=== PATIENT | female | born 1940 | race Caucasian/White ===

== ENCOUNTER 2022-06-21 18:09 | Inpatient (IN) | payer MEDICARE, SELFPAY ==
--- NOTE | 2022-06-21 20:54 | DI.US.S_ITS ---
PROCEDURE: US ABDOMEN LIMITED INDICATIONS: Possible cholecystitis TECHNIQUE: Real-time scanning was performed of the abdominal and retroperitoneal organs, with image documentation. COMPARISON: Outside Facility, RG, CT ABDOMEN/PELVIS WITH CONTRAST, 06/21/2022, 15:48. FINDINGS: Liver: Visualized liver is is normal in size and homogeneous in echotexture. Gallbladder: There are gallstones. Nonmobile stones are noted in the gallbladder neck. Gallbladder wall appears mildly thickened measuring 3.7 mm. No pericholecystic fluid collection or sonographic Lopez sign. Biliary ducts: Intrahepatic bile ducts are mildly dilated. Extrahepatic bile duct caliber measures 8 mm. There stones in the common bile duct. Pancreas: There is a 1.0 x 0.7 x 0.5 cm cyst in pancreatic body and tail. In addition, there is a 1.0 x 1.8 x 1.7 cm complex mass inferior to the pancreatic body. Kidneys: There is a 0.7 x 6.8 x 4.7 cm cyst in the upper pole of the right kidney. Miscellaneous: No free abdominal fluid. IMPRESSION: 1. Cholelithiasis and choledocholithiasis. There is gallbladder wall thickening suspicious for acute cholecystitis. 2. Common bile duct is dilated. Suspect common bile duct obstruction. If clinically indicated, MRCP can be obtained. 3. There is a cyst in the pancreatic body and tail and a complex mass inferior to the pancreatic body. These can be further evaluated by pancreatic protocol CT or MRI. 4. There is a large cyst in the superior pole of the right kidney. Dictated by: Brittni Portillo M.D. on 06/22/2022 at 10:14 Approved by: Brittni Portillo M.D. on 06/22/2022 at 10:22
--- NOTE | 2022-06-21 20:59 | PM.HP.1 ---
History of Present Illness History of Present Illness Date Patient Seen: 06/21/22 Chief complaint: Direct admit Narrative: Marnie Trejo is an 81-year-old female with a history of dementia, hypothyroidism hypertension who presented to the ED department Sunday complaining of acute onset abdominal pain that started at breakfast this a.m., it is an achy pain, that radiates between right upper quadrant and right lower quadrant does not radiate, at the time of exam in Sunday pain was 8/10 no modifying factors, she had not eaten anything, never had this pain previously has no history of appendectomy or cholecystectomy, patient was mildly hypertensive with a blood pressure of 170/91 afebrile, physical exam demonstrated varying outcomes she was mildly tender in the right upper quadrant on 1 exam, then she had no tenderness on the 3rd exam she had right lower quadrant tenderness, patient was negative for guarding, rebound, masses, Cullens or Rosa- Alvarado sign, patient's vitals were BP 170/91, temp 98.6?, HR 72, R 18, O2 saturation 98% on room air. WBC 11.8, HGB 15.6, HCT 46.6, mild left shift neutrophils 9.6 no other laboratory findings are documented in chart note from Sunday ED. EKG demonstrates sinus rhythm with occasional PVC complexes, right BBB rate of 68. We have no record imaging or diagnostics for comparison. Patient was initially discharged home from the ED feeling that there was a low clinical suspicion for emergent SURGICAL OR MEDICAL CONDITIONS AT THAT TIME. It appears that the patient had a CT of the abdomen pelvis with contrast done in Sunday but results were reported after the patient had been discharged. CT of abdomen pelvis showed diffuse hyper attenuated surrounding the gallbladder, possible ronan cholecystic fluid with prominence of the extrahepatic bile duct this reflects possible acute cholecystitis, patient does have a large hiatal hernia containing almost the entire stomach as well as a loop of the transverse colon above the diaphragm but is absent for any findings of bowel obstruction or inflammation. It is reported that Dr. Kessler general surgeon was consulted regarding CT results-Dr. Levine requested that patient be a direct admit under the hospitalist service for possible cholecystitis. Patient will be coming by private vehicle via the [place] from Sunday. Patient direct admit to acute care for abdominal pain right quadrant upper and lower possible acute cholecystitis. Patient History Medical History Dementia Essential hypertension Hypothyroidism (acquired) Comment: No prior surgical procedures Family & Social History Family History (Updated 06/21/22 @ 21:11 by [facility] Mother Alcohol abuse Depression Father Drug abuse Safety & Behavioral: Patient lives with granddaughter, feels safe in her environment Tobacco & Substance use: Patient is a nonsmoker, does not drink alcohol, does not use drugs or recreational substances. Meds Home Medications and Allergies Home Medications Medication Instructions Recorded Confirmed Type amlodipine 10 mg tablet 10 mg PO DAILY 06/21/22 06/21/22 History cyclobenzaprine 5 mg tablet 5 mg PO BEDTIME 06/21/22 06/21/22 History donepezil 10 mg tablet 10 mg PO BEDTIME 06/21/22 06/21/22 History levothyroxine 50 mcg tablet 50 mcg PO DAILY 06/21/22 06/21/22 History valsartan 320 mg tablet 320 mg PO DAILY 06/21/22 06/21/22 History Allergies Allergy/AdvReac Type Severity Reaction Status Date / Time No Known Drug Allergies Allergy Verified 06/22/22 00:24 Review of Systems Review of Systems Narrative: All 12 point systems reviewed with the patient and are negative except otherwise documented. Exam Narrative Exam Narrative: General: Patient is a well-developed, well-nourished in no distress at this time. HEENT: Normocephalic, atraumatic, extraocular muscles intact, appears to have scleral icterus and generalized icterus of skin, oral pharynx is clear and mucous membranes are moist, noted mouth odor. Neck is supple and symmetric, trachea is midline, no adenopathy, no thyroid enlargement, nontender, no masses palpated. Negative for JVD Chest: Normal AP diameter and contour without kyphoscoliosis, no nasal flaring, retractions, or tachypneic labored Lungs: Auscultation of all lung rutledge are clear without adventitious sounds, wheezes, rhonchi, or rales. Cardio: regular rate and rhythm without murmur, rubs, or gallops, no carotid bruit, no cardiac pulsations present. Abdomen: negative for organomegaly, or masses. Bowel sounds are present in all 4 quadrants without guarding or rebound, no CVA tenderness no Arden's or Rosa-Alvarado sign. Musculoskeletal: Muscle strength and tone are equal within normal limits, no deformity, crepitus, effusions, cyanosis, clubbing or edema present. Full range of motion intact radial and pedal pulses are normal. Skin: Warm dry and intact without rashes, ulcerations or petechiae. Neuro: Alert and orientated x3, strength is +5/5 in all extremities, sensation to touch intact, no gross deficits noted of cranial nerves. Psych: Patient has a well-kept appearance, appropriate affect, mental status attitude thought context and judgment are appropriate for age. Objective Labs Result Diagrams: 06/22/22 04:18 06/22/22 04:18 Assessment & Plan Assessment & Plan narrative: Marnie Trejo is an 81-year-old female with a history of dementia, hypothyroidism hypertension presenting with acute abdominal pain, possible cholecystitis from [place] ED. Dr. Kessler to consult-patient is a direct admit to acute care. 1. Abdominal pain, acute, likely secondary to acute cholecystitis, present on admission -NPO -D5 half-normal saline at 40 cc/HR, q.6 blood sugar checks while NPO -manage pain and antiemetics -Dr. Kessler was consulted from [place], consult placed for [place] -abdominal ultrasound ordered -[place] 06/21/22:CT of abdomen pelvis showed diffuse hyper attenuated surrounding the gallbladder, possible ronan cholecystic fluid with prominence of the extrahepatic bile duct this reflects possible acute cholecystitis, patient does have a large hiatal hernia containing almost the entire stomach as well as a loop of the transverse colon above the diaphragm but is absent for any findings of bowel obstruction or inflammation. 2. Dementia, chronic, present on admission -continue Aricept 3. Essential hypertension, uncontrolled, acute on chronic, present on admission -continue amlodipine and valsartan 4. Hypothyroidism, acquired, chronic, present on admission -TSH ordered -continue levothyroxine Code status:DNR/DNI Surrogate decision maker: Kevin Trejo Grand daughter COVMARYANNE PCR: Negative DVT/VTE prophylaxis: Holding VTE due to possible surgical intervention, SCDs only Disposition: I have utilized all available immediate resources to obtain, update, or review the patient's current medications. Exception-the patient is not eligible for medication reconciliation; the patient is in an emergent medical situation were delaying treatment would jeopardize the patient's health. I confirmed that the patient's advanced care plan is present, Code status is documented and/or surrogate decision maker is listed in the patient's medical record. I have personally reviewed patient's chart notes from PCP, specialists, diagnostic imaging, and laboratory, Time Spent With Patient Critical Care time: I spent a total of [] minutes of critical care time on this patient's care today; this time is exclusive of procedural time.
[2022-06-21 21:30] VITALS: BP 196/85; PULSE 80; RESP 16; TEMP 36.8; O2SAT 96
[2022-06-21 21:57] VITALS: BMI 27.1
[2022-06-21 22:08] VITALS: BMI 27.1
[2022-06-21 23:35] VITALS: BP 188/96
[2022-06-22] MEDS: DONEPEZIL 5 MG TABLET 10 MG PO ×2 (01:00→21:05)
[2022-06-22] MEDS: DEXTROSE 5%-0.9% NS 1,000 ML 40 ML IV (01:16)
[2022-06-22 02:30] LABS: Appearance Urine UA CLEAR; Bilirubin Urine UA NEGATIVE (NEGATIVE); Color Urine UA YELLOW; Glucose Urine UA NEGATIVE (Negative); Ketones Urine UA 1+ (NEGATIVE); Leukocyte Esterase Urine UA NEGATIVE (NEGATIVE); Nitrite Urine UA NEGATIVE (Negative); Occult Blood Urine UA 1+ (Negative); Protein Urine UA TRACE (Negative); Urobilinogen Urine UA 0.2 E.U./dL (0.2)
[2022-06-22 02:45] LABS: Bacteria Urine None Seen; Culture Indicated Urine Cult Not Indicated; RBC Urine 1-5/HPF (0-5/HPF); WBC Urine 0-1/HPF (0-5/HPF)
[2022-06-22 04:29] LABS: Add Manual Diff / Slide Review NO; Basophils Absolute Auto 100 /uL (0-100); Basophils Percent Auto 0.5 % (0-2); Eosinophils Absolute Auto 0 /uL (0-450); Eosinophils Percent Auto 0.5 % (2-4); Hematocrit 44.2 % (36-46); Hemoglobin 15.3 g/dL (12.0-16.0); Lymphocytes Absolute Auto 900 /uL (1100-4500); Lymphocytes Percent Auto 8.5 % (25-40); Mean Corpuscular HGB Conc 34.7 % (30-36); Mean Corpuscular Hemoglobin 30.6 PG (26-34); Mean Corpuscular Volume 88.2 fL (80-100); Monocytes Absolute Auto 1000 /uL (0-900); Monocytes Percent Auto 9.3 % (3-14); Neutrophils Absolute Auto 8400 /uL (1500-7000); Neutrophils Percent Auto 81.2 % (50-75); Platelet Count 301 X10^3/uL (150-400); Red Blood Cell Count 5.01 X10^6/uL (4.0-5.2); Red Cell Distribution Width 14.2 % (11.6-14.8); White Blood Cell Count 10.4 X10^3/uL (4.5-11.0)
[2022-06-22 04:39] LABS: Prothrombin Time 11.4 SECONDS (10.1-12.7)
[2022-06-22 04:46] LABS: BUN Creatinine Ratio 14.9 (6-22); Blood Urea Nitrogen 10 mg/dL (7-17); Calcium 8.8 mg/dL (8.4-10.2); Carbon Dioxide 24 mmol/L (22-32); Chloride 96 mmol/L (98-107); Estimated Glomerular Filt Rate > 60 mL/min (>60); Glucose 124 mg/dL (80-110); HEMOLYSIS < 15 (0-50); Potassium 3.7 mmol/L (3.4-5.1); Sodium 127 mmol/L (137-145)
[2022-06-22 04:47] LABS: Lactate (Lactic Acid) 0.8 mmol/L (0.7-2.1)
[2022-06-22 05:03] LABS: Procalcitonin 0.06 ng/mL (<0.5)
[2022-06-22 06:00] VITALS: BP 167/78; PULSE 74; RESP 17; TEMP 36.1; O2SAT 94
[2022-06-22 07:19] LABS: Alanine Aminotransferase 13 IU/L (<35); Albumin 4.2 g/dL (3.5-5.0); Albumin Globulin Ratio 1.3 (1.0-2.8); Alkaline Phosphatase 95 U/L (38-126); Aspartate Aminotransferase 43 IU/L (14-36); Bilirubin Total 0.8 mg/dL (0.2-1.3); Bilirubin Unconjugated 0.7 mg/dL (0.0-1.1); Globulin 3.3 g/dL (1.7-4.1); HEMOLYSIS 35 (0-50); Total Protein 7.5 g/dL (6.3-8.2)
--- NOTE | 2022-06-22 08:00 | PM.PN.1 ---
Subjective Subjective Date Patient Seen: 06/22/22 Time Patient Seen: 13:50 Interval history: Patient feeling alot better today with less abd pain. Daughter in law at bedside. Exam Vital Signs (past 8 hours): - 06/22/22 06:00 Temperature 97 F L Pulse Rate 74 Respiratory Rate 17 Blood Pressure 167/78 H Pulse Oximetry 94 Oxygen Flow Rate 0 Oxygen Flow Rate 0 Narrative Exam Narrative: GEN: no acute distress, pleasantly demented HEENT: moist mucous membranes, PERRL NECK: trachea midline, no JVD CV: regular rate and rhythm, no murmurs PULM: clear bilaterally ABD: soft, mildlly tender in RUQ, nondistended, no organomegaly EXT: warm and well perfused with no edema NEURO: awake, alert, oriented, no focal deficits Objective Labs Result Diagrams: 06/22/22 04:18 06/22/22 04:18 Labs: Laboratory Results - last 24 hr 06/22/22 06/22/22 06/22/22 00:07 04:18 04:18 WBC 10.4 RBC 5.01 Hgb 15.3 Hct 44.2 MCV 88.2 MCH 30.6 MCHC 34.7 RDW 14.2 Plt Count 301 Neut % (Auto) 81.2 H Lymph % (Auto) 8.5 L Harper % (Auto) 9.3 Eos % (Auto) 0.5 L Baso % (Auto) 0.5 Neut # (Auto) 8400 H Lymph # (Auto) 900 L Harper # (Auto) 1000 H Eos # (Auto) 0 Baso # (Auto) 100 PT INR Sodium Potassium Chloride Carbon Dioxide BUN Creatinine Estimated GFR BUN/Creatinine Ratio Glucose Lactate 0.8 Calcium Magnesium Total Bilirubin Conjugated Bilirubin Unconjugated Bilirubin AST ALT Alkaline Phosphatase Total Protein Albumin Globulin Albumin/Globulin Ratio Procalcitonin Urine Color Yellow Urine Appearance Clear Urine pH 7.0 Ur Specific [place] 1.010 Urine Protein Trace H Urine Glucose (UA) Negative Urine Ketones 1+ H Urine Occult Blood 1+ H Urine Nitrate Negative Urine Bilirubin Negative Urine Urobilinogen 0.2 Ur Leukocyte Esterase Negative Urine RBC 1-5/hpf Urine WBC 0-1/hpf Urine Bacteria None seen Ur Culture Indicated? Cult not indicated 06/22/22 06/22/22 06/22/22 04:18 04:18 04:18 WBC RBC Hgb Hct MCV MCH MCHC RDW Plt Count Neut % (Auto) Lymph % (Auto) Harper % (Auto) Eos % (Auto) Baso % (Auto) Neut # (Auto) Lymph # (Auto) Harper # (Auto) Eos # (Auto) Baso # (Auto) PT 11.4 INR 1.0 Sodium 127 L Potassium 3.7 Chloride 96 L Carbon Dioxide 24 BUN 10 Creatinine 0.67 Estimated GFR > 60 BUN/Creatinine Ratio 14.9 Glucose 124 H Lactate Calcium 8.8 Magnesium 2.0 Total Bilirubin 0.8 Conjugated Bilirubin 0.0 Unconjugated Bilirubin 0.7 AST 43 H ALT 13 Alkaline Phosphatase 95 Total Protein 7.5 Albumin 4.2 Globulin 3.3 Albumin/Globulin Ratio 1.3 Procalcitonin 0.06 Urine Color Urine Appearance Urine pH Ur Specific [place] Urine Protein Urine Glucose (UA) Urine Ketones Urine Occult Blood Urine Nitrate Urine Bilirubin Urine Urobilinogen Ur Leukocyte Esterase Urine RBC Urine WBC Urine Bacteria Ur Culture Indicated? [facility] Medical History Dementia Essential hypertension Hypothyroidism (acquired) Family History Mother Alcohol abuse Depression Father Drug abuse Social History household members: other alcohol intake: never Assessment & Plan Assessment & Plan narrative: Marnie Trejo is an 81-year-old female with a history of dementia, hypothyroidism hypertension presenting with acute abdominal pain, possible cholecystitis from [place] ED. Dr. Kessler to consult-patient is a direct admit to acute care. 1. Abdominal pain, acute, secondary to acute cholecystitis and choledocholithiasis, present on admission -abdominal ultrasound 06/22 shows gallstones in gallbaldder and CBD with mildly thickened wall and CBD dilation, however no signs of pericholecystic fluid, leukocytosis or positive stapleton's -Dr. Kessler was consulted from [place], saw and offered surgery however patient declined and family preferred to wait and see if improvement possible without surgery. Would like to defer MRCP. -continue rocephin and flagyl -may advance diet -[place] 06/21/22:CT of abdomen pelvis showed diffuse hyper attenuated surrounding the gallbladder, possible ronan cholecystic fluid with prominence of the extrahepatic bile duct this reflects possible acute cholecystitis, patient does have a large hiatal hernia containing almost the entire stomach as well as a loop of the transverse colon above the diaphragm but is absent for any findings of bowel obstruction or inflammation. 2. Dementia, chronic, present on admission -continue Aricept 3. Essential hypertension, uncontrolled, acute on chronic, present on admission -continue amlodipine and valsartan 4. Hypothyroidism, acquired, chronic, present on admission -TSH normal -continue levothyroxine 5. Acute hyponatremia -sodium 127, likely due to D5W IV -stop D5W and start NS IV 6. Pancreatic mass? -Abd US with 1x1.7x1.5cm complex mass inferior to pancreatic body -per family can hold on MRCP at this time Code status:DNR/DNI Surrogate decision maker: Kevin Trejo Grand daughter COVMARYANNE PCR: Negative DVT/VTE prophylaxis: heparin SQ Dispo: Pending improvement in abd pain and monitoring to ensure surgery not required. Likely 1-2 days. Time Spent With Patient Critical Care time: I spent a total of [] minutes of critical care time on this patient's care today; this time is exclusive of procedural time. Quality VTE Deep Vein Thrombosis/Pulmonary Embolism Present on Admission: No
[2022-06-22] MEDS: AMLODIPINE 5 MG TABLET 10 MG PO (09:20)
[2022-06-22] MEDS: VALSARTAN 80 MG TABLET 320 MG PO (09:20)
[2022-06-22 12:00] VITALS: BP 147/52; PULSE 67; RESP 18; TEMP 36.5; O2SAT 95
--- NOTE | 2022-06-22 12:11 | CM.DANOTE ---
Addendum entered by ROLDAN Cevallos 06/22/22 14:22: ADD: Return call from [facility] RN ([phone]) requesting clinicals to review and states they have not started med management for pt yet but the plan is to initiate it when pt is discharged and returns and requests d/c summary, signed med list, and any scripts be faxed to [phone] at discharge and aware pt may be stable for d/c tomorrow if she continues to improve. No need for RN report to be called as long as d/c summary and meds faxed at discharge. SW faxed initial clinicals to [facility] to review today. BF Original Note: Patient is an 81 yo female who was admitted on 06/21/22 for Acute Cholecystitis. Pt has MCR A only and CECILIA and her PCP is not listed. EMR was reviewed. Per MD, pt with hx of mild dementia at baseline and a direct admit from [place] for likely cholecystitis and Surgeon to consult and pt currently NPO and to have ultrasound. Per Surgeon, pt with infection in her gallbladder and small mass found near pancreas and recommendation would likely be surgery if pt is not improving. TEE met bedside with pt, SAMPSON Rodriguez, and Hospitalist and pt shows some signs of improvement with IV-Abx and less pain and DIL got family including pt's granddtr/DPOA Kevin on the phone (extended family currently in [place] but flying home in the next couple days) with MD and decision made to hold off on surgery today and treat conservatively to see if pt continues to improve. Family confirms that pt lives on [place] since her move from [place] about a year ago for increased assist needs and lived with granddtr/DPOA Kevin but required more assist as Kevin had just had a new baby. Family moved pt into [facility] [place] on [address] and pt ambulates independently and has cane for longer distances and receives assist with meds and meals. Pt does not have any dementia behaviors or exit seeking, just short term memory loss. Granddtr, SAMPSON and family live on [address] and additional family in [facility] that visit weekly with pt. Family preference is pt return to [facility] and SAMPSON Rodriguez staying in [place] for support and to provide transport home when pt stable for d/c. Family primary concern is attempting to get pt enrolled in Medicare B and SW contacted [employer] and they cannot assist with enrolling in Medicare but kindly willing to provide the contact info for family for SHIBA assist. TEE called [facility] and left msg with staffing director to confirm if they need clinicals faxed to review as pt likely will be at her baseline if able to be treated conservatively. Plan: SW to follow closely to determine if conservative tx continues to help pt improve in her infection and pain towards plan of return to [facility] via family POV. SW to confirm with [facility] if any d/c packet or clinicals need to be faxed and reviewed. ROLDAN Cevallos Discharge Planning/Care Management CM Discharge Assessment Start: 06/22/22 12:06 Freq: Status: Active Protocol: Document 06/22/22 12:06 BF (Rec: 06/22/22 12:11 BF [id number]) Discharge Planning Assessment Assigned Carpet Cutter ROLDAN Bautista DPOA/Assigned Designee Name Helga Brown Contact Information [phone] Advance Directives? No Advance Directives on File No History Provided By Patient,Family Member,Medical Record Has Patient been admitted in last 30 No days? Prior Living Arrangements Assisted Living [facility] Household Members other Type of transporation used prior to Relies on Others admit Facility Name Admitted From: Other Willing to Return to Facility? Yes Independent with ADL's Yes: mostly, has med assist, memory issues Is patient alert and oriented? Yes: somewhat, has memory issues, mild dementia Needs Assistance With Meal Prep,Managing Medications ,Home Chores / Shopping Caregiver for Another No DME Already Rented / Owned Cane Comment Pending progress and possible surgery. Pt independent with ambulation at baseline Barriers to Discharge No Discharge Plan Assisted Living Facility Transportation Arrangement DIL [facility] bedside and plans to provide transport at d/c Referrals Initiated None needed Additional Comment Pending conservative tx vs surgery Whiteboard Updated in Patient Room with Yes name and ext. # of Carpet Cutter Review Status In Process Please Provide Date Initial DC 06/22/22 Assessment Was Performed Next Review Type Continued Stay Review
[2022-06-22] MEDS: metroNIDAZOLE 500 MG TABLET PO ×3 (12:15→21:05)
[2022-06-22] MEDS: cefTRIAXone 2,000 MG in SODIUM CHLORIDE 0.9% 100 ML 200 MG IV (12:15)
[2022-06-22] MEDS: SODIUM CHLORIDE 0.9% 1,000 ML 100 ML IV (12:15)
--- NOTE | 2022-06-22 12:32 | P.CONS_ITS ---
History of Present Illness Consult details Date Patient Seen: 06/22/22 Time Patient Seen: 12:32 Chief complaint: Direct admit Narrative: 81F admitted for possible acute cholecystitis. Yesterday she developed abdominal pain and presented to [facility] ER where CT demonstrated possible cholecystitis. She was subsequently transfered here for further evaluation as no surgical services or ultrasound was available at the other location. She has some degree of dementia. Today she has no abdominal pain , fever , nausea. Ultrasound here demonstrates gallstones and a mildly dialted CBD suggestive of common bile duct stones wall thickness 3 mm no pericholecystic fluid and an incidental complex mass inferior to the pancreas. Labs CBC 10, TB 0.8, AST 40, ALT 10. Patient declines a cholecystectomy as does her family who prefer to wait and she how she does. Meds Home Medications and Allergies Home Medications Medication Instructions Recorded Confirmed Type amlodipine 10 mg tablet 10 mg PO DAILY 06/21/22 06/21/22 History cyclobenzaprine 5 mg tablet 5 mg PO BEDTIME 06/21/22 06/21/22 History donepezil 10 mg tablet 10 mg PO BEDTIME 06/21/22 06/21/22 History levothyroxine 50 mcg tablet 50 mcg PO DAILY 06/21/22 06/21/22 History valsartan 320 mg tablet 320 mg PO DAILY 06/21/22 06/21/22 History Allergies Allergy/AdvReac Type Severity Reaction Status Date / Time No Known Drug Allergies Allergy Verified 06/22/22 00:24 Exam Vital Signs (past 8 hours): - 06/22/22 06:00 06/22/22 12:00 Temperature 97 F L 97.7 F Pulse Rate 74 67 Respiratory Rate 17 18 Blood Pressure 167/78 H 147/52 H Pulse Oximetry 94 95 Oxygen Flow Rate 0 0 Oxygen Flow Rate 0 Narrative Exam Narrative: Gen-Elderly woman alert and oriented. Chest-Non labored resp Abdomen-Soft non tender. Objective Labs Result Diagrams: 06/22/22 04:18 06/22/22 04:18 Labs: Laboratory Results - last 24 hr 06/22/22 06/22/22 06/22/22 00:07 04:18 04:18 WBC 10.4 RBC 5.01 Hgb 15.3 Hct 44.2 MCV 88.2 MCH 30.6 MCHC 34.7 RDW 14.2 Plt Count 301 Neut % (Auto) 81.2 H Lymph % (Auto) 8.5 L [place] % (Auto) 9.3 Eos % (Auto) 0.5 L Baso % (Auto) 0.5 Neut # (Auto) 8400 H Lymph # (Auto) 900 L [place] # (Auto) 1000 H Eos # (Auto) 0 Baso # (Auto) 100 PT INR Sodium Potassium Chloride Carbon Dioxide BUN Creatinine Estimated GFR BUN/Creatinine Ratio Glucose Lactate 0.8 Calcium Magnesium Total Bilirubin Conjugated Bilirubin Unconjugated Bilirubin AST ALT Alkaline Phosphatase Total Protein Albumin Globulin Albumin/Globulin Ratio Procalcitonin TSH Urine Color Yellow Urine Appearance Clear Urine pH 7.0 Ur Specific [place] 1.010 Urine Protein Trace H Urine Glucose (UA) Negative Urine Ketones 1+ H Urine Occult Blood 1+ H Urine Nitrate Negative Urine Bilirubin Negative Urine Urobilinogen 0.2 Ur Leukocyte Esterase Negative Urine RBC 1-5/hpf Urine WBC 0-1/hpf Urine Bacteria None seen Ur Culture Indicated? Cult not indicated 06/22/22 06/22/22 06/22/22 04:18 04:18 04:18 WBC RBC Hgb Hct MCV MCH MCHC RDW Plt Count Neut % (Auto) Lymph % (Auto) [place] % (Auto) Eos % (Auto) Baso % (Auto) Neut # (Auto) Lymph # (Auto) [place] # (Auto) Eos # (Auto) Baso # (Auto) PT 11.4 INR 1.0 Sodium 127 L Potassium 3.7 Chloride 96 L Carbon Dioxide 24 BUN 10 Creatinine 0.67 Estimated GFR > 60 BUN/Creatinine Ratio 14.9 Glucose 124 H Lactate Calcium 8.8 Magnesium 2.0 Total Bilirubin 0.8 Conjugated Bilirubin 0.0 Unconjugated Bilirubin 0.7 AST 43 H ALT 13 Alkaline Phosphatase 95 Total Protein 7.5 Albumin 4.2 Globulin 3.3 Albumin/Globulin Ratio 1.3 Procalcitonin 0.06 TSH Urine Color Urine Appearance Urine pH Ur Specific [place] Urine Protein Urine Glucose (UA) Urine Ketones Urine Occult Blood Urine Nitrate Urine Bilirubin Urine Urobilinogen Ur Leukocyte Esterase Urine RBC Urine WBC Urine Bacteria Ur Culture Indicated? 06/22/22 04:18 WBC RBC Hgb Hct MCV MCH MCHC RDW Plt Count Neut % (Auto) Lymph % (Auto) [place] % (Auto) Eos % (Auto) Baso % (Auto) Neut # (Auto) Lymph # (Auto) [place] # (Auto) Eos # (Auto) Baso # (Auto) PT INR Sodium Potassium Chloride Carbon Dioxide BUN Creatinine Estimated GFR BUN/Creatinine Ratio Glucose Lactate Calcium Magnesium Total Bilirubin Conjugated Bilirubin Unconjugated Bilirubin AST ALT Alkaline Phosphatase Total Protein Albumin Globulin Albumin/Globulin Ratio Procalcitonin TSH 2.40 Urine Color Urine Appearance Urine pH Ur Specific [place] Urine Protein Urine Glucose (UA) Urine Ketones Urine Occult Blood Urine Nitrate Urine Bilirubin Urine Urobilinogen Ur Leukocyte Esterase Urine RBC Urine WBC Urine Bacteria Ur Culture Indicated? PFSH Medical History Dementia Essential hypertension Hypothyroidism (acquired) Family History Mother Alcohol abuse Depression Father Drug abuse Social History household members: other Tobacco & Substance Use alcohol intake: never Assessment & Plan Assessment and plan (1) Gallstones: Status: Acute Assessment & Plan narrative: 81F with cholelithiasis and choledocholithiasis without evidence of acute cholecystitis or common bile duct obstruction. US demonstrates stones within the neck of the gallbladder and dilation of the CBD however no pericholecystic fluid. On exam non tender and labs are without leukocytosis or hyperbilirubinemia. Findings discussed with the patient and her family. She is at risk of developing cholecystitis and or cholangitis but does not have them at this time. Cholecystectomy and ERCP could be considered but are not necessary at this time. Ultimately she and her family decline surgical intervention at this time. -Diet as tolerated Time Spent With Patient Critical Care time: I spent a total of [] minutes of critical care time on this patient's care today; this time is exclusive of procedural time.
[2022-06-22 18:25] VITALS: BP 146/64; PULSE 64; RESP 16; TEMP 36.6; O2SAT 95
[2022-06-22 23:43] VITALS: BP 135/62; PULSE 65; RESP 14; TEMP 36.1; O2SAT 96
[2022-06-23] MEDS: SODIUM CHLORIDE 0.9% FLUSH 10 ML IV ×2 (01:32→09:11)
[2022-06-23 04:42] LABS: Add Manual Diff / Slide Review NO; Basophils Absolute Auto 100 /uL (0-100); Eosinophils Absolute Auto 200 /uL (0-450); Eosinophils Percent Auto 2.3 % (2-4); Hematocrit 39.9 % (36-46); Hemoglobin 13.7 g/dL (12.0-16.0); Lymphocytes Absolute Auto 1100 /uL (1100-4500); Lymphocytes Percent Auto 15.1 % (25-40); Mean Corpuscular HGB Conc 34.3 % (30-36); Mean Corpuscular Hemoglobin 30.4 PG (26-34); Mean Corpuscular Volume 88.6 fL (80-100); Monocytes Absolute Auto 900 /uL (0-900); Monocytes Percent Auto 11.8 % (3-14); Neutrophils Absolute Auto 5100 /uL (1500-7000); Neutrophils Percent Auto 69.8 % (50-75); Platelet Count 280 X10^3/uL (150-400); Red Cell Distribution Width 14.1 % (11.6-14.8); White Blood Cell Count 7.3 X10^3/uL (4.5-11.0)
[2022-06-23 04:50] LABS: BUN Creatinine Ratio 16.1 (6-22); Blood Urea Nitrogen 14 mg/dL (7-17); Calcium 8.6 mg/dL (8.4-10.2); Carbon Dioxide 24 mmol/L (22-32); Chloride 100 mmol/L (98-107); Estimated Glomerular Filt Rate > 60 mL/min (>60); Glucose 87 mg/dL (80-110); HEMOLYSIS < 15 (0-50); Sodium 132 mmol/L (137-145)
[2022-06-23] MEDS: LEVOTHYROXINE 50 MCG TABLET PO (05:41)
[2022-06-23 06:00] VITALS: BP 152/56; PULSE 60; RESP 18; TEMP 36.4; O2SAT 97
--- NOTE | 2022-06-23 08:41 | PM.DS.1 ---
History of Present Illness History of Present Illness Chief complaint: Direct admit Narrative: Marnie Trejo is an 81-year-old female with a history of dementia, hypothyroidism hypertension who presented to the ED department Sunday complaining of acute onset abdominal pain that started at breakfast this a.m., it is an achy pain, that radiates between right upper quadrant and right lower quadrant does not radiate, at the time of exam in Sunday pain was 8/10 no modifying factors, she had not eaten anything, never had this pain previously has no history of appendectomy or cholecystectomy, patient was mildly hypertensive with a blood pressure of 170/91 afebrile, physical exam demonstrated varying outcomes she was mildly tender in the right upper quadrant on 1 exam, then she had no tenderness on the 3rd exam she had right lower quadrant tenderness, patient was negative for guarding, rebound, masses, Cullens or Rosa- Alvarado sign, patient's vitals were BP 170/91, temp 98.6?, HR 72, R 18, O2 saturation 98% on room air.? WBC 11.8, HGB 15.6, HCT 46.6, mild left shift neutrophils 9.6 no other laboratory findings are documented in chart note from Sunday ED.? EKG demonstrates sinus rhythm with occasional PVC complexes, right BBB rate of 68.? We have no record imaging or diagnostics for comparison.? Patient was initially discharged home from the ED feeling that there was a low clinical suspicion for emergent SURGICAL OR MEDICAL CONDITIONS AT THAT TIME.? It appears that the patient had a CT of the abdomen pelvis with contrast done in Sunday but results were reported after the patient had been discharged.? CT of abdomen pelvis showed diffuse hyper attenuated surrounding the gallbladder, possible ronan cholecystic fluid with prominence of the extrahepatic bile duct this reflects possible acute cholecystitis, patient does have a large hiatal hernia containing almost the entire stomach as well as a loop of the transverse colon above the diaphragm but is absent for any findings of bowel obstruction or inflammation.? It is reported that Dr. Kessler general surgeon was consulted regarding CT results-Dr. Levine requested that patient be a direct admit under the hospitalist service for possible cholecystitis.? Patient will be coming by private vehicle via the [facility] from Sunday. Patient direct admit to acute care for abdominal pain right quadrant upper and lower possible acute cholecystitis. Discharge Providers Provider Date of admission: 06/21/22 18:09 Discharge Date: 06/23/22 Consults: 06/21/22 20:47 Consult to Physician Routine Comment: Consulting Provider: Alonso Kessler Reason for consultation: poss Acute cholecystitis Discharge provider: Luis Montero DO Summary Hospital Course Discharge Diagnosis: 1. Abdominal pain, acute, secondary to acute cholecystitis and choledocholithiasis, present on admission -abdominal ultrasound 06/22 shows gallstones in gallbaldder and CBD with mildly thickened wall and CBD dilation, however no signs of pericholecystic fluid, leukocytosis or positive stapleton's -Dr. Kessler was consulted from [place], saw and offered surgery however patient declined and family preferred to wait and see if improvement possible without surgery. Would like to defer MRCP. -continue rocephin and flagyl, switched to cipro flagyl on dc for 1 week -december advance diet -Sunday06/21/22:CT of abdomen pelvis showed diffuse hyper attenuated surrounding the gallbladder, possible ronan cholecystic fluid with prominence of the extrahepatic bile duct this reflects possible acute cholecystitis, patient does have a large hiatal hernia containing almost the entire stomach as well as a loop of the transverse colon above the diaphragm but is absent for any findings of bowel obstruction or inflammation. 2. Dementia, chronic, present on admission -continue Aricept 3. Essential hypertension, uncontrolled, acute on chronic, present on admission -continue amlodipine and valsartan 4. Hypothyroidism, acquired, chronic, present on admission -TSH normal -continue levothyroxine 5. Acute hyponatremia, improved -sodium 127, likely due to D5W IV -stop D5W and start NS IV 6. Pancreatic mass? -Abd US with 1x1.7x1.5cm complex mass inferior to pancreatic body -per family can hold on MRCP at this time Hospital Course: Transferred from [place] for abd pain and surgical consultation for possible cholecystitis. Abd US on arrival confirmed presence of cholecystitis with stones present in CBD. Surgery consulted and offered surgery, but patient and family elected to try antibiotics alone to avoid surgery. Surgery felt this was reasonable given no signs of cholangitis, significant gallbladder wall thickness or presence of pericholecystic fluid. Patient's abd pain improved and leukocytosis resolved on IV rocephin and flagyl, so patient discharged home on po cipro and flagyl for 1 week. Abd US also incidentally noted a infrapancreatic mass measuring 1x1.7x1.5cm. MRCP was offered to qualify mass more however family elected to wait on this and possibly pursue further workup as outpatient. Time Spent with Patient Time spent: Greater than 30 minutes Exam Vital Signs (past 8 hours): - 06/23/22 06:00 Temperature 97.6 F Pulse Rate 60 Respiratory Rate 18 Blood Pressure 152/56 H Pulse Oximetry 97 Oxygen Flow Rate 0 Oxygen Delivery Method Room Air Oxygen Flow Rate 0 Narrative Exam Narrative: GEN: no acute distress, AOx2 HEENT: moist mucous membranes, PERRL NECK: trachea midline, no JVD CV: regular rate and rhythm, no murmurs PULM: clear bilaterally ABD: soft, mildlly tender in RUQ, nondistended, no organomegaly EXT: warm and well perfused with no edema NEURO: awake, alert, oriented, no focal deficits Objective Labs Result Diagrams: 06/23/22 04:15 06/23/22 04:15 Labs: Laboratory Results - last 24 hr 06/22/22 06/23/22 06/23/22 04:18 04:15 04:15 WBC 7.3 RBC 4.50 Hgb 13.7 Hct 39.9 MCV 88.6 MCH 30.4 MCHC 34.3 RDW 14.1 Plt Count 280 Neut % (Auto) 69.8 Lymph % (Auto) 15.1 L [place] % (Auto) 11.8 Eos % (Auto) 2.3 Baso % (Auto) 1.0 Neut # (Auto) 5100 Lymph # (Auto) 1100 [place] # (Auto) 900 Eos # (Auto) 200 Baso # (Auto) 100 Sodium 132 L Potassium 4.0 Chloride 100 Carbon Dioxide 24 BUN 14 Creatinine 0.87 Estimated GFR > 60 BUN/Creatinine Ratio 16.1 Glucose 87 Calcium 8.6 TSH 2.40 [facility] Medical History Dementia Essential hypertension Hypothyroidism (acquired) Family History Mother Alcohol abuse Depression Father Drug abuse Social History household members: other alcohol intake: never Discharge Plan Discharge Plan Patient Disposition: Home Provider Discharge Comment: You were admitted for acute cholecystitis which is infection in the gallbladder from gallstones. Surgery was offered but we agreed that watching and waiting and treating with only antibiotics was reasonable. You improved without needing surgery so will go home on 1 week more week of antibiotics orally. Please hold on taking your donepezil until you finish the antibiotics. Discharge orders & Medications Prescriptions: New metronidazole 500 mg Tablet 500 mg PO TID 5 Days Qty: 15 0RF Rx Instructions: start evening of 06/23 ciprofloxacin HCl [Cipro] 500 mg tablet 500 mg PO BID 5 Days Qty: 10 0RF Rx Instructions: start evening of 06/23 Continued donepezil 10 mg tablet 10 mg PO BEDTIME Label Comments: TAKE ONE TABLET BY MOUTH NIGHTLY amlodipine 10 mg tablet 10 mg PO DAILY Label Comments: TAKE ONE TABLET BY MOUTH EVERY DAY levothyroxine 50 mcg tablet 50 mcg PO DAILY Label Comments: TAKE ONE TABLET BY MOUTH EVERY DAY valsartan 320 mg tablet 320 mg PO DAILY Label Comments: TAKE ONE TABLET BY MOUTH EVERY DAY cyclobenzaprine 5 mg Tablet 5 mg PO BEDTIME Visit Report/Discharge Packet Instructions: DI for Heart Failure, DI for Prescription Opioid Use Quality VTE Deep Vein Thrombosis/Pulmonary Embolism Present on Admission: No
[2022-06-23] MEDS: AMLODIPINE 5 MG TABLET 10 MG PO (09:09)
[2022-06-23] MEDS: metroNIDAZOLE 500 MG TABLET PO (09:09)
[2022-06-23] MEDS: VALSARTAN 80 MG TABLET 320 MG PO (09:10)
[2022-06-23] MEDS: cefTRIAXone 2,000 MG in SODIUM CHLORIDE 0.9% 100 ML 200 MG IV (10:07)
--- NOTE | 2022-06-23 10:57 | PC.NURSE ---
Pt alert, slight confusion on and off. follows commands well. Offers no overt c/o. Daughter attentive at bedside. New IV started as old one leaked while being flush.
== END 2022-06-23 11:30 | disposition home or self-care (01) | DRG 445 ==
PROVIDERS: Nurse Practitioner Family; Student in an Organized Health Care Education/Training Program; Admitting Provider Internal Medicine; Referring Provider Internal Medicine; Visit Provider Internal Medicine
DX: K80.62 Calculus of gallbladder and bile duct with acute cholecystitis without obstruction (principal); E87.1 Hypo-osmolality and hyponatremia; F03.90 Unspecified dementia, unspecified severity, without behavioral disturbance, psychotic disturbance, mood disturbance, and anxiety; I10 Essential (primary) hypertension; E03.9 Hypothyroidism, unspecified; Z66 Do not resuscitate; Z20.822 Contact with and (suspected) exposure to COVID-19
CPT/HCPCS: 36415; 76705; 80048; 80076; 81001; 82962; 83605; 83735; 84145; 84443; 85025; 85610; 99232; J0696